=== PATIENT | male | born 1945 | race Caucasian/White ===

== ENCOUNTER → 2018-09-14 | Outpatient (CLI) | payer MEDICARE, BC ==
[~2018-09-14] MED LIST: AMLO10TA8 PO; ASPI-496 PO; ATOR10TA PO; CALC0.5C9 PO; CALC650T7 PO; HYDR-3240 PO; LOSA50TA2 PO; METH500T5 PO; MULT-642 PO; OMEP40CA3 PO; OXYC1TAB7 PO; SAW/1TAB2 PO; TUMS
== END | disposition home or self-care (01) ==
LOC: CFH 09:36
PROVIDERS: ATTEND Nurse Practitioner Family
DX: I08.3 Combined rheumatic disorders of mitral, aortic and tricuspid valves (principal); I11.9 Hypertensive heart disease without heart failure; E78.5 Hyperlipidemia, unspecified; I77.819 Aortic ectasia, unspecified site; R06.02 Shortness of breath
CPT/HCPCS: 93306

== ENCOUNTER → 2018-10-19 | Outpatient (CLI) | payer MEDICARE, BC | END | disposition home or self-care (01) | LOC: CFH 14:11 | PROVIDERS: ATTEND Internal Medicine Cardiovascular Disease | DX: R06.02 Shortness of breath (principal); R07.89 Other chest pain; E78.2 Mixed hyperlipidemia; I10 Essential (primary) hypertension | CPT/HCPCS: 71046 ==

== ENCOUNTER → 2018-11-02 | Outpatient (CLI) | payer MEDICARE, BC | END | disposition home or self-care (01) | LOC: CFH 08:01 | PROVIDERS: ATTEND Internal Medicine Cardiovascular Disease | DX: R07.89 Other chest pain (principal); R06.02 Shortness of breath | CPT/HCPCS: 78452; 93017; A9502 ==

== ENCOUNTER 2020-03-25 15:44 | Inpatient (IN) | payer MEDICARE, OTHER ==
[~2020-03-25] VITALS: Ht 182.9 cm; Wt 132.0 kg
--- NOTE | 2020-03-25 17:01 | NUR ---
MAMMOGRAPHER: PT TO ROOM FROM LOBBY
[2020-03-25] MEDS ORDERED: SODIUM CHLORIDE 0.9% 1,000ML IVBOLUS ONE (17:30)
[2020-03-25] MEDS ORDERED: ONDANSETRON 2MG/ML, 2ML IVPush ONE (17:30)
[2020-03-25] MEDS ORDERED: ONDANSETRON 2MG/ML, 2ML ONE (18:02)
[2020-03-25] MEDS ORDERED: MORPHINE SULFATE 4 MG/ML, 1ML ONE ×2 (18:02→22:38)
[2020-03-25] MEDS: MORPHINE SULFATE 4 MG/ML, 1ML IVPush PRN ×2 (18:08→22:45)
--- NOTE | 2020-03-25 18:20 | NUR ---
Pt here for swelling in jaw from cracked tooth, new swelling in anterior neck. PIV placed, fluids infusing.
[2020-03-25 18:25] LABS: CHLORIDE 104 mmol/L (98-107)
[2020-03-25 18:26] LABS: BASOPHILS # (AUTO) 0.02 x10^3/uL (0-0.1); BASOPHILS % (AUTO) 0 % (0-1); EOSINOPHILS # (AUTO) 0.08 x10^3/uL (0-0.4); EOSINOPHILS % (AUTO) 1 % (1-7); LYMPHOCYTES # (AUTO) 0.89 x10^3/uL (1-3.4); LYMPHOCYTES % (AUTO) 8 % (22-44); MD NO; MEAN CORPUSCULAR HEMOGLOBIN 30.3 pg (27.5-34.5); MEAN CORPUSCULAR HGB CONC 33.2 g/dL (33.2-36.2); MEAN PLATELET VOLUME 7.2 fL (7.4-10.4); MONOCYTES # (AUTO) 1.17 x10^3/uL (0.2-0.8); MONOCYTES % (AUTO) 10 % (2-9); NEUTROPHILS # (AUTO) 9.47 x10^3/uL (1.8-6.8); NEUTROPHILS % (AUTO) 81 % (42-75); PLATELET COUNT 282 x10^3/uL (130-400); RED BLOOD COUNT 4.76 x10^6/uL (4.38-5.82); RED CELL DISTRIBUTION WIDTH 13.4 % (9.4-14.8)
[2020-03-25 18:33] LABS: ALBUMIN 3.6 g/dL (3.4-5.0); ANION GAP 10 mmol/L (5-15); CALCIUM 8.9 mg/dL (8.5-10.1); CREATININE 1.28 mg/dL (0.7-1.3)
--- NOTE | 2020-03-25 18:54 | NUR ---
Report provided to JAMES LUCIA
--- NOTE | 2020-03-25 18:57 | NUR ---
BEDSIDE REPORT FROM ALONSO LUCIA, PT CARE TRANSFERRED AT THIS TIME. PT RESTING ON GURNEY, APPEARS COMFORTABLE, GROSS NEURO INTACT, NAD, PT TO CT AT THIS TIME.
[2020-03-25] MEDS ORDERED: LORazepam 2 MG/ML, 1ML ONE ×2 (19:03→20:11)
--- NOTE | 2020-03-25 19:11 | NUR ---
pt ct unable to be completed d/t anxiety. infomred. pt medicated per aug. ct called. wctm.
[2020-03-25] MEDS ORDERED: LORazepam 2 MG/ML, 1ML IV ONE (19:30)
--- NOTE | 2020-03-25 20:07 | NUR ---
pt unable to do CT due to anxiety. aware. pt resting on gurney, NAD, placed on 2L NC for 02 sats. WCTM. waiting for additional test results.
[2020-03-25] MEDS ORDERED: LORazepam 2 MG/ML, 1ML IVPush ONE (20:30)
--- NOTE | 2020-03-25 20:39 | NUR ---
PT TO CT AGAIN, AFTER ADDITIONAL MEDICATION. NAD. WCTM.
[2020-03-25] MEDS ORDERED: OMNIPAQUE 350 MG/ML, 100ML BOTTLE ONE (20:50)
--- NOTE | 2020-03-25 21:42 | NUR ---
pt resting on [place], NAD, appears comfortable, waiting for surgical consult. Pt last meal was a milk shake arond 11:30, last water was 1430. OMFS coming in for consult. WCTM.
[2020-03-25] MEDS ORDERED: CLINDAMYCIN PMX 600MG/50ML 50 ML IV ONE (22:00)
[2020-03-25] MEDS ORDERED: CLINDAMYCIN PMX 600MG/50ML 50 ML ONE (22:21)
--- NOTE | 2020-03-25 22:26 | NUR ---
PT MEDICATED PER AUG, NAD, STATES PAIN IS 8 OR 9. RESTING ON GURNEY, WAITING FOR CONSULT. WCTM.
--- NOTE | 2020-03-25 22:36 | NUR ---
REPORT CALLED TO JUAN LUIS LUCIA, PT CARE TO BE TRANSFERRED UPON ARRIVAL TO THE FLOOR. NAD. NO CHANGE IN CONDITION. HEATHER
[2020-03-25 23:33] VITALS: BP 155/88
[2020-03-26 00:19] VITALS: BP 153/87
[2020-03-26] MEDS ORDERED: morphine SULFATE 10 MG/ML, 1ML IVPush PRN (01:00)
[2020-03-26] MEDS ORDERED: MELATONIN 5 MG TABLET PO PRN (01:00)
[2020-03-26] MEDS ORDERED: ACETAMINOPHEN 325 MG TABLET PO PRN (01:00)
[2020-03-26] MEDS ORDERED: ONDANSETRON ODT 4 MG PO PRN (01:00)
[2020-03-26] MEDS ORDERED: DOCUSATE 100 MG CAPSULE PO PRN (01:00)
[2020-03-26] MEDS: CLINDAMYCIN PMX 600MG/50ML 50 ML IV SCH ×3 (06:11→22:01)
[2020-03-26 08:20] VITALS: BP 148/76
[2020-03-26] MEDS ORDERED: OXYcodone IR 5MG TABLET PO PRN (09:00)
[2020-03-26] MEDS ORDERED: LACTATED RINGERS 1,000 ML IV SCH (11:00)
[2020-03-26 12:47] LABS: BASOPHILS # (AUTO) 0.04 x10^3/uL (0-0.1); BASOPHILS % (AUTO) 0 % (0-1); EOSINOPHILS # (AUTO) 0.13 x10^3/uL (0-0.4); EOSINOPHILS % (AUTO) 1 % (1-7); LYMPHOCYTES # (AUTO) 1.36 x10^3/uL (1-3.4); LYMPHOCYTES % (AUTO) 15 % (22-44); MD NO; MEAN CORPUSCULAR HEMOGLOBIN 30.3 pg (27.5-34.5); MEAN CORPUSCULAR HGB CONC 33.8 g/dL (33.2-36.2); MONOCYTES # (AUTO) 0.86 x10^3/uL (0.2-0.8); MONOCYTES % (AUTO) 9 % (2-9); NEUTROPHILS # (AUTO) 6.71 x10^3/uL (1.8-6.8); NEUTROPHILS % (AUTO) 74 % (42-75); PLATELET COUNT 275 x10^3/uL (130-400); RED BLOOD COUNT 4.41 x10^6/uL (4.38-5.82); RED CELL DISTRIBUTION WIDTH 13.3 % (9.4-14.8)
[2020-03-26 13:20] VITALS: BP 126/77
[2020-03-26] MEDS ORDERED: LIDOCAINE 1%-EPI 1:100K, 20ML ONE (15:05)
[2020-03-26] MEDS ORDERED: NEOSPORIN OINT, 15GM ONE (15:05)
[2020-03-26] MEDS ORDERED: FENTANYL PF 100 MCG/2ML ONE ×3 (16:58→18:46)
[2020-03-26] MEDS ORDERED: MIDAZOLAM 1 MG/ML, 2ML ONE (16:58)
[2020-03-26] MEDS ORDERED: HYDROmorphone 1 MG/ML, 1ML INJ IVPush PRN (17:00)
[2020-03-26] MEDS ORDERED: MEPERIDINE/PF 25MG/0.5ML IVPush PRN (17:00)
[2020-03-26] MEDS ORDERED: hydrALAzine 20 MG/ML, 1ML IV PRN (17:00)
[2020-03-26] MEDS ORDERED: OXYcodone 5 MG/5 ML ORAL.SOL UDC PO PRN ×2 (17:00→22:30)
[2020-03-26] MEDS ORDERED: PROMETHAZINE 25 MG/ML, 1ML IVPush PRN (17:00)
[2020-03-26] MEDS ORDERED: HALOPERIDOL 5 MG/ML IV PRN (17:00)
[2020-03-26] MEDS ORDERED: DIPHENHYDRAMINE 50 MG/ML, 1ML IVPush PRN (17:00)
[2020-03-26] MEDS ORDERED: SUCCINYLCHOLINE 20 MG/ML, 10ML ONE (18:29)
[2020-03-26] MEDS ORDERED: ROCURONIUM 10MG/ML,5ML ONE (18:29)
[2020-03-26] MEDS ORDERED: PROPOFOL 10 MG/ML, 20ML ONE (18:29)
[2020-03-26] MEDS ORDERED: GLYCOPYRROLATE 0.2MG/1ML, 5ML ONE (18:29)
[2020-03-26] MEDS ORDERED: ONDANSETRON 2MG/ML, 2ML ONE (18:29)
[2020-03-26] MEDS ORDERED: NEOSTIGMINE 1 MG/ML, 10ML ONE (18:29)
[2020-03-26] MEDS ORDERED: CEFAZOLIN 1,000 MG ONE (18:29)
[2020-03-26] MEDS ORDERED: DEXAMETHASONE 4 MG/ML, 1ML ONE (18:29)
[2020-03-26] MEDS ORDERED: MEPERIDINE/PF 25MG/ML,1ML ONE (18:47)
[2020-03-26] MEDS: LABETALOL 5MG/ML, 20ML IV PRN ×3 (19:00→19:35)
[2020-03-26] MEDS ORDERED: OXYcodone 5 MG/5 ML ORAL.SOL UDC ONE (19:05)
[2020-03-26] MEDS: FENTANYL PF 100 MCG/2ML IV PRN ×2 (19:08→19:13)
[2020-03-26 20:09] VITALS: BP 124/49
[2020-03-26] MEDS ORDERED: ATORVASTATIN 10 MG TABLET PO SCH (21:00)
[2020-03-26] MEDS: LOSARTAN 50MG TABLET PO SCH (22:00)
[2020-03-26] MEDS ORDERED: IBUPROFEN 200 MG TABLET PO PRN (22:30)
[2020-03-27 02:24] VITALS: BP 153/76
[2020-03-27 04:51] VITALS: BP 137/79
[2020-03-27] MEDS: CLINDAMYCIN PMX 600MG/50ML 50 ML IV SCH (05:38)
[2020-03-27 08:00] VITALS: BP 108/68
[2020-03-27] MEDS: LOSARTAN 50MG TABLET PO SCH (08:06)
[2020-03-27] MEDS ORDERED: ASPIRIN 81 MG TABLET EC PO SCH (09:00)
[2020-03-27] MEDS ORDERED: OMEPRAZOLE 20 MG CAPSULE.DR PO SCH (09:00)
[2020-03-27] MEDS ORDERED: AMLODIPINE 10 MG TAB PO SCH (09:00)
[2020-03-27] MEDS ORDERED: CLIN300C8 PO (09:55)
[2020-03-27] MEDS ORDERED: OXYC5TAB3 PO (10:39)
== END 2020-03-27 11:56 | disposition home or self-care (01) | DRG 137 ==
LOC: ED 21:02 → EDIP 22:00 → 4NE 23:31 → DCLOUNGE 03-27 11:42
PROVIDERS: ADMIT Internal Medicine; ATTEND Hospitalist
PROC: 0CDXXZ0 Extraction of Lower Tooth, Single, External Approach (ICD-10-PCS; 2020-03-26)
PROC: 0J910ZZ Drainage of Face Subcutaneous Tissue and Fascia, Open Approach (ICD-10-PCS; principal; 2020-03-26 16:00)
DX: K04.7 Periapical abscess without sinus (principal); K12.2 Cellulitis and abscess of mouth; S02.5XXA Fracture of tooth (traumatic), initial encounter for closed fracture; K11.6 Mucocele of salivary gland; Z20.828 Contact with and (suspected) exposure to other viral communicable diseases; E21.0 Primary hyperparathyroidism; E78.5 Hyperlipidemia, unspecified; E87.6 Hypokalemia; I10 Essential (primary) hypertension; J39.2 Other diseases of pharynx; K09.0 Developmental odontogenic cysts; K21.9 Gastro-esophageal reflux disease without esophagitis; X58.XXXA Exposure to other specified factors, initial encounter; Y93.89 Activity, other specified; Y92.89 Other specified places as the place of occurrence of the external cause; Y99.8 Other external cause status
CPT/HCPCS: 36415; 70100; 70491; 80048; 82040; 85025; 87040; 87635; 93005; 96361; 96374; 96375; 96376; 99285; G0378; J0690; J1100; J2175; J2250; J2405; J2704; J2710; J3010; J3490; Q9967; J0330; J2060; J2270; J7030; J7120

== ENCOUNTER 2020-12-03 14:17 | Emergency (ER) | payer MEDICARE, OTHER ==
[~2020-12-03] VITALS: Ht 182.9 cm; Wt 119.4 kg
[~2020-12-03 14:17] MED LIST changes: +AMLO-211 PO; -AMLO10TA8 PO; -CALC650T7 PO; +CLIN300C9 PO; +HYDR-2214 PO; -HYDR-3240 PO; +OXYC5TAB98 PO; +[UNRECOGNIZED DRUG - CODE] PO
--- NOTE | 2020-12-03 14:33 | NUR ---
EKG IN TRIAGE
[2020-12-03 14:57] LABS: BASOPHILS % (AUTO) 1 % (0-1); EOSINOPHILS % (AUTO) 2 % (1-7); LYMPHOCYTES % (AUTO) 16 % (22-44); MEAN CORPUSCULAR HEMOGLOBIN 30.7 pg (27.5-34.5); MEAN CORPUSCULAR HGB CONC 34.1 g/dL (33.2-36.2); MEAN PLATELET VOLUME 7.2 fL (7.4-10.4); MONOCYTES % (AUTO) 10 % (2-9); NEUTROPHILS % (AUTO) 71 % (42-75); PLATELET COUNT 281 x10^3/uL (130-400); RED BLOOD COUNT 4.71 x10^6/uL (4.38-5.82); RED CELL DISTRIBUTION WIDTH 13.5 % (9.4-14.8)
[2020-12-03 14:58] LABS: MD NO
[2020-12-03 15:11] LABS: ANION GAP 8 mmol/L (5-15); CALCIUM 8.6 mg/dL (8.5-10.1); CHLORIDE 110 mmol/L (98-107); CREATININE 1.53 mg/dL (0.7-1.3)
[2020-12-03 15:12] LABS: ALANINE AMINOTRANSFERASE 29 U/L (12-78); ALBUMIN 3.9 g/dL (3.4-5.0)
[2020-12-03 15:16] LABS: ALKALINE PHOSPHATASE 67 U/L (45-117); BILIRUBIN,TOTAL 1.5 mg/dL (0.2-1.0); TOTAL PROTEIN 7.9 g/dL (6.4-8.2); TROPONIN I < 0.015 ng/mL (0.000-0.045)
[2020-12-03 16:44] VITALS: BP 124/74
== END 2020-12-03 16:47 | disposition home or self-care (01) ==
LOC: ED 16:30
DX: M54.12 Radiculopathy, cervical region (principal); J18.9 Pneumonia, unspecified organism; E78.00 Pure hypercholesterolemia, unspecified; I10 Essential (primary) hypertension; G89.29 Other chronic pain
CPT/HCPCS: 36415; 71045; 80053; 83880; 84484; 85025; 93005; 99285